=== PATIENT | male | born 1960 | race African-American/Black ===

== ENCOUNTER 2024-06-23 09:11 | Emergency (ER) | payer OTHER ==
[~2024-06-23] VITALS: Ht 190.5 cm; Wt 95.3 kg
[2024-06-23 09:45] VITALS: BP 126/70; TEMP 98.2
[2024-06-23] MEDS ORDERED: LIDOCAINE 2% JEL UROJET 10 ML MM ONE (09:59)
[2024-06-23] MEDS: LIDOCAINE 2% JEL 5 ML TUBE MC ONE (10:08)
[2024-06-23] MEDS ORDERED: PHEN26CR2 RC (10:15)
[2024-06-23 10:21] VITALS: O2SAT 98
== END 2024-06-23 10:21 | disposition home or self-care (01) ==
LOC: ER 09:23
DX: K64.5 Perianal venous thrombosis (principal); K59.00 Constipation, unspecified
CPT/HCPCS: 99282; J3490